=== PATIENT | male | born 1950 | race Caucasian/White ===

== ENCOUNTER 2019-01-01 17:53 | Emergency (ER) | payer MEDICARE, SELFPAY ==
[2019-01-01 17:55] VITALS: BP 141/73; PULSE 94; RESP 18; TEMP 36.4; O2SAT 97; BMI 31.6
[2019-01-01 18:20] VITALS: BP 141/73; PULSE 94; RESP 18; TEMP 36.6; O2SAT 97
--- NOTE | 2019-01-01 18:50 | ED.VISSUMM ---
- ER Visit Summary Date of Service: 01/01/19 Chief Complaint: Mouse bite History of Present Illness: The patient is a 68 M with a suspected mouse bite to his left ring finger. Physical Examination: Middle phalanx of the right ring finger is red and swollen dorsally. Joints are normal. Neurovascular intact distally. Test Results: None performed Emergency Department Course and Treatment: Patient will be treated with Bactrim and Keflex. Soak his hand 3 times a day in warm soapy water. Follow-up with Dr. lion as needed. Return for new or worsening issues. Treatment Plan: As above Disposition: Discharge Impression: 1. Left ring finger cellulitis This note was generated with [employer] dictation software. It may contain incorrect words, spelling, and punctuation that were not noted in review of the chart prior to signing ED Disposition - Plan for ED Patient: Referrals: Care Physician,No Primary [Primary Care Provider] -
--- NOTE | 2019-01-01 18:53 | ED.DCSUM_ITS ---
- ER Visit Summary Date of Service: 01/01/19 Chief Complaint: Mouse bite History of Present Illness: The patient is a 68 M with a suspected mouse bite to his left ring finger. Physical Examination: Middle phalanx of the right ring finger is red and swollen dorsally. Joints are normal. Neurovascular intact distally. Test Results: None performed Emergency Department Course and Treatment: Patient will be treated with Bactrim and Keflex. Soak his hand 3 times a day in warm soapy water. Follow-up with Dr. lion as needed. Return for new or worsening issues. Treatment Plan: As above Disposition: Discharge Impression: 1. Left ring finger cellulitis This note was generated with [employer] dictation software. It may contain incorrect words, spelling, and punctuation that were not noted in review of the chart prior to signing ED Disposition - Plan for ED Patient: Referrals: Care Physician,No Primary [Primary Care Provider] -
--- NOTE | 2019-01-01 18:53 | ED.DEP ---
ED Disposition - Plan for ED Patient: Instructions: ED Skin Infec MRSA Suspect Conf Prescriptions: Cephalexin [Keflex] 500 mg PO Q6 #28 cap Smz/Tmp Ds [Bactrim Ds] 1 tab PO BID #14 tab Referrals: Gaurav Cameron MD [STAFF PHYSICIAN] -
[2019-01-01] MEDS: Cephalexin 250 MG Capsule 500 MG PO (19:02)
[2019-01-01] MEDS: Smz/Tmp Ds Tablet 1 TABLET PO (19:02)
== END 2019-01-01 19:04 | disposition home or self-care (01) ==
LOC: ED 18:45
PROVIDERS: Emergency Provider Emergency Medicine
DX: L03.012 Cellulitis of left finger (principal); I10 Essential (primary) hypertension
CPT/HCPCS: 99282

== ENCOUNTER 2019-02-02 18:46 | Emergency (ER) | payer MEDICARE, SELFPAY ==
[2019-02-02 18:47] VITALS: BP 150/84; PULSE 102; RESP 16; TEMP 36.1; O2SAT 99; BMI 31.6
== END 2019-02-02 19:26 ==
LOC: ED 19:42
PROVIDERS: Emergency Provider Emergency Medicine
DX: Z48.00 Encounter for change or removal of nonsurgical wound dressing (principal)